=== PATIENT | female | born 1985 ===

== ENCOUNTER 2016-09-04 20:39 | Emergency (ER) | payer OTHER ==
[2016-09-04 20:45] VITALS: BMI 23.3
[2016-09-04] MEDS ORDERED: Promethazine/Cod 6.25mg-10mg/5ml Syr UD PO STA (20:49)
--- NOTE | 2016-09-04 21:08 | ED PDOC ---
Arrival/HPI - General Chief Complaint: Shortness Of Breath Time Seen by Provider: 09/04/16 20:41 Historian: Patient - History of Present Illness Narrative History of Present Illness (Text): 09/04/16 20:46 Ruthy Parnell is a 31 year old female, whose past medical history includes asthma, who presents to the emergency department complaining of shortness of breath for the past 4 months. Patient states she has also been experiencing an associated cough for 4 months that has not resolved. Patient denies any fever, chills, nausea, vomiting, diarrhea, urinary symptoms, back pain, neck pain, headache, dizziness, or any other complaints. Time/Duration: Other (4 months) Symptom Onset: Gradual Symptom Course: Unchanged Activities at Onset: Rest, Light Context: Home Past Medical History - Provider Review Nursing Documentation Reviewed: Yes - Infectious Disease Hx of Infectious Diseases: None - Tetanus Immunization Tetanus Immunization: Unknown - Pulmonary Hx Asthma: Yes Hx Pulmonary Edema: Yes (h/o intubation) - Neurological Hx Neurological Disorder: No - HEENT Hx HEENT Disorder: No - Renal Hx Renal Disorder: No - Endocrine/Metabolic Hx Endocrine Disorders: No - Hematological/Oncological Hx Blood Disorders: No - Integumentary Hx Dermatological Disorder: No - Musculoskeletal/Rheumatological Hx Musculoskeletal Disorders: No - Gastrointestinal Hx Gastrointestinal Disorders: No - Genitourinary/Gynecological Hx Genitourinary Disorders: No - Psychiatric Hx Psychophysiologic Disorder: No Hx Substance Use: No - Surgical History Hx Appendectomy: Yes - Anesthesia Hx Anesthesia: Yes Hx Anesthesia Reactions: No Hx Malignant Hyperthermia: No - Suicidal Assessment Feels Threatened In Home Enviroment: No Family/Social History - Physician Review Nursing Documentation Reviewed: Yes Family/Social History: No Known Family HX Smoking Status: Never Smoked Hx Alcohol Use: No Hx Substance Use: No Allergies/Home Meds Allergies/Adverse Reactions: Allergies mushroom Allergy (Verified 05/22/16 18:57) VOMITING Review of Systems - Physician Review All systems were reviewed & negative as marked: Yes - Review of Systems Constitutional: Normal Eyes: Normal ENT: Normal Respiratory: SOB, Cough Cardiovascular: Normal. absent: Chest Pain Gastrointestinal: Normal. absent: Abdominal Pain, Diarrhea, Nausea, Vomiting Genitourinary Female: Normal. absent: Dysuria, Frequency, Hematuria, Urine Output Changes Musculoskeletal: Normal. absent: Back Pain, Neck Pain Skin: Normal. absent: Rash Neurological: Normal. absent: Headache, Dizziness Endocrine: Normal Hemo/Lymphatic: Normal Psychiatric: Normal Physical Exam Vital Signs Reviewed: Yes Vital Signs Pulse Resp BP Pulse Ox 09/04/16 21:30 21 96 09/04/16 20:39 77 22 107/76 100 Temperature: Afebrile Blood Pressure: Normal Pulse: Regular Respiratory Rate: Normal Appearance: Positive for: Well-Appearing, Non-Toxic, Comfortable Pain Distress: None Mental Status: Positive for: Alert and Oriented X 3 - Systems Exam Head: Present: Atraumatic, Normocephalic Pupils: Present: PERRL Extroacular Muscles: Present: EOMI Conjunctiva: Present: Normal Mouth: Present: Moist Mucous Membranes Neck: Present: Normal Range of Motion Respiratory/Chest: Present: Wheezes. No: Respiratory Distress, Accessory Muscle Use Cardiovascular: Present: Regular Rate and Rhythm, Normal S1, S2. No: Murmurs Abdomen: Present: Normal Bowel Sounds. No: Tenderness, Distention, Peritoneal Signs Back: Present: Normal Inspection Upper Extremity: Present: Normal Inspection. No: Cyanosis, Edema Lower Extremity: Present: Normal Inspection. No: Edema Neurological: Present: GCS=15, CN II-XII Intact, Speech Normal Skin: Present: Warm, Dry, Normal Color. No: Rashes Psychiatric: Present: Alert, Oriented x 3, Normal Insight, Normal Concentration Medical Decision Making ED Course and Treatment: 09/04/16 20:48 Impression: 31 year old female complaining of shortness of breath and cough for 4 months. Differential Diagnosis include but are not limited to: asthma vs. bronchitis Plan: -- Duoneb -- Phenergan -- Solu-medrol -- Reassess and disposition Prior Visits: Notes and results from previous visits were reviewed. On 06/02/2016, pt was seen in the ED for lower abdominal pain. Pt was d/c home. Progress Notes: 09/04/16 22:40 On re-evaluation, the patient feels better and is in no acute distress. I have discussed the results and plan with the patient, who expresses understanding. Patient in agreement with plan to discharged home. Patient is stable for discharge. Patient was instructed to follow up with physician/clinic in 1-2 days or return if symptoms worsen or new concerning symptoms arise. Re-evaluation Time: 22:44 Reassessment Condition: Re-examined, Improved - Medication Orders Current Medication Orders: Albuterol/Ipratropium (Duoneb 3 Mg/0.5 Mg (3 Ml) Ud) 3 ml IH Q15M SESAR Last Admin: 09/04/16 22:41 Dose: 3 ML Discontinued Medications Methylprednisolone (Solu-Medrol) 125 mg IVP ONCE ONE Stop: 09/04/16 20:50 Last Admin: 09/04/16 22:17 Dose: 125 MG IVP Administration Document 09/04/16 22:17 MR (Rec: 09/04/16 22:17 MR [facility] [id number]) Charges for Administration # of IVP Administrations 1 Promethazine HCl/Codeine (Phenergan/Codeine Oral Syrup) 5 ml PO ONCE STA Stop: 09/04/16 20:50 Last Admin: 09/04/16 22:17 Dose: 5 ML - Scribe Statement The provider has reviewed the documentation as recorded by the Jey Ojeda Provider Attestation: All medical record entries made by the Terranceibleslye were at my direction and personally dictated by me. I have reviewed the chart and agree that the record accurately reflects my personal performance of the history, physical exam, medical decision making, and the department course for this patient. I have also personally directed, reviewed, and agree with the discharge instructions and disposition. Disposition/Present on Arrival - Present on Arrival Any Indicators Present on Arrival: No History of DVT/PE: No History of Uncontrolled Diabetes: No Urinary Catheter: No History of Decub. Ulcer: No History Surgical Site Infection Following: None - Disposition Have Diagnosis and Disposition been Completed?: Yes Diagnosis: Asthma Disposition: HOME/ ROUTINE Disposition Time: 22:44 Patient Problems: Current Active Problems Problem Status Diagnosed Asthma Acute Discharge Instructions (ExitCare): Asthma (ED) Prescriptions: Budesonide [Pulmicort Flexhaler] 90 mcg IH DAILY #1 aer.pow[employer][email or web address] predniSONE [predniSONE Tab] 20 mg PO TID #15 tab Referrals: Eduard Ferreira MD [Primary Care Provider] - Follow up with primary
[2016-09-04] MEDS: Albuterol-Ipratrop 3 mg / 0.5 (3 ml) UD IH SCH ×3 (22:17→23:06)
[2016-09-04 22:52] VITALS: TEMP 98.2
[2016-09-04 23:06] VITALS: BP 120/88; PULSE 90; RESP 18; O2SAT 100
== END 2016-09-04 23:30 | disposition home or self-care (01) ==
LOC: ED 20:39
DX: J45.909 Unspecified asthma, uncomplicated (principal)
CPT/HCPCS: 96374; 99284; J2930

== ENCOUNTER 2017-01-22 22:18 | Emergency (ER) | payer OTHER ==
[2017-01-22 22:31] VITALS: O2SAT 100
[2017-01-22 22:39] VITALS: BMI 21.9
--- NOTE | 2017-01-22 23:28 | ED PDOC ---
Arrival/HPI - General Chief Complaint: Syncope Time Seen by Provider: 01/22/17 23:13 Historian: Patient - History of Present Illness Narrative History of Present Illness (Text): 01/22/17 23:27 Ruthy Parnell is a 31 year old female, whose past medical history includes asthma and polycystic ovaries, who presents to the emergency department complaining of a syncopal episode earlier today. Patient states she was sitting on the toilet at 14:00 today, got up to shower, and had a syncopal episode. Patient states she is unable to recall the incident and notes she remembers waking up with posterior neck pain and headache. Patient states currently she is still experiencing posterior headache and neck pain with right hip discomfort when ambulating. Patient notes she is currently menstruating. Patient denies any fever, chills, chest pain, shortness of breath, nausea, vomiting, diarrhea, urinary symptoms, bowel/urinary incontinence, vision changes , focal neurological deficits, back pain, dizziness, or any other complaints. Time/Duration: Other (14:00 today) Symptom Onset: Sudden Symptom Course: Unchanged Activities at Onset: Rest, Light Context: Home Past Medical History - Provider Review Nursing Documentation Reviewed: Yes - Infectious Disease Hx of Infectious Diseases: None - Tetanus Immunization Tetanus Immunization: Unknown - Pulmonary Hx Asthma: Yes Hx Pulmonary Edema: Yes (h/o intubation) - Neurological Hx Neurological Disorder: No - HEENT Hx HEENT Disorder: No - Renal Hx Renal Disorder: No - Endocrine/Metabolic Hx Endocrine Disorders: No - Hematological/Oncological Hx Blood Disorders: No - Integumentary Hx Dermatological Disorder: No - Musculoskeletal/Rheumatological Hx Musculoskeletal Disorders: No - Gastrointestinal Hx Gastrointestinal Disorders: No - Genitourinary/Gynecological Hx Genitourinary Disorders: No - Psychiatric Hx Psychophysiologic Disorder: No Hx Substance Use: No - Surgical History Hx Appendectomy: Yes - Anesthesia Hx Anesthesia: No - Suicidal Assessment Feels Threatened In Home Enviroment: No Family/Social History - Physician Review Nursing Documentation Reviewed: Yes Family/Social History: Unknown Family HX Smoking Status: Never Smoked Hx Alcohol Use: No Hx Substance Use: No Allergies/Home Meds Allergies/Adverse Reactions: Allergies mushroom Allergy (Verified 05/22/16 18:57) VOMITING Review of Systems - Physician Review All systems were reviewed & negative as marked: Yes - Review of Systems Constitutional: Normal. absent: Fevers Eyes: Normal Respiratory: Normal. absent: SOB, Cough Cardiovascular: Syncope. absent: Chest Pain Gastrointestinal: Normal. absent: Abdominal Pain, Diarrhea, Nausea, Vomiting Genitourinary Female: Normal. absent: Dysuria, Frequency, Hematuria, Urine Output Changes Musculoskeletal: Arthralgias (+right hip pain), Neck Pain Skin: Normal. absent: Rash Neurological: Headache. absent: Dizziness Endocrine: Normal Hemo/Lymphatic: Normal Psychiatric: Normal Physical Exam Vital Signs Reviewed: Yes Vital Signs Temp Pulse Resp BP Pulse Ox 01/23/17 01:30 97.9 F 72 16 122/70 100 01/22/17 22:31 98.1 F 78 14 126/76 100 Temperature: Afebrile Blood Pressure: Normal Pulse: Regular Respiratory Rate: Normal Appearance: Positive for: Well-Appearing, Non-Toxic, Comfortable Pain Distress: None Mental Status: Positive for: Alert and Oriented X 3 Finger Stick Blood Glucose: 60 - Systems Exam Head: Present: Atraumatic, Normocephalic Pupils: Present: PERRL Extroacular Muscles: Present: EOMI Conjunctiva: Present: Normal Ears: Present: Normal, NORMAL TM, Normal Canal. No: Erythema, TM Bulging, Fluid , TM Perf Mouth: Present: Moist Mucous Membranes Pharnyx: Present: Normal. No: ERYTHEMA, EXUDATE, TONSILS ENLARGED, Peritonsilar Swelling, Uvular Deviation, Muffled/Hoarse Voice, Strider, Soft Palate/Uvular Edema Nose (External): Present: Atraumatic Nose (Internal): Present: Normal Inspection Neck: Present: Normal Range of Motion Respiratory/Chest: Present: Clear to Auscultation, Good Air Exchange. No: Respiratory Distress, Accessory Muscle Use Cardiovascular: Present: Regular Rate and Rhythm, Normal S1, S2. No: Murmurs Abdomen: Present: Normal Bowel Sounds. No: Tenderness, Distention, Peritoneal Signs Back: Present: Normal Inspection Upper Extremity: Present: Normal Inspection. No: Cyanosis, Edema Lower Extremity: Present: Normal Inspection. No: Edema Neurological: Present: GCS=15, CN II-XII Intact, Speech Normal Skin: Present: Warm, Dry, Normal Color. No: Rashes Psychiatric: Present: Alert, Oriented x 3, Normal Insight, Normal Concentration Medical Decision Making ED Course and Treatment: 01/22/17 23:27 Impression: 31 year old female presents s/p syncopal episode at 14:00 today with headache, neck pain, and right hip discomfort. Plan: -- EKG -- Labs -- UA -- Reassess and disposition Prior Visits: Notes and results from previous visits were reviewed. On 09/04/2016, pt was seen in the Emergency department for shortness of breath and cough. Pt was d/c home. Progress Notes: Reviewed EKG, NSR at [address]-segment elevations or depressions, no T-wave inversions, normal intervals. 01/23/17 00:17 RN reports pt is refusing blood work. Ultram ordered. 01/23/17 00:[address]/X-ray studies. 01/23/17 01:36 Reviewed radiology, XR Hips show no fracture. CT Head shows: 1. No acute intracranial abnormality. 2. Additional CT findings described above. CT Cervical Spine shows: 1. No acute cervical spine fracture or subluxation. 2. Mild spondylosis is visualized at C4-5. 01/23/17 01:39 On reevaluation the patient feels better and is in no acute distress. Headache has resolved. I have discussed the results and plan with the patient, who expresses understanding. Patient given the opportunity to ask question, all questions were answered and there is agreement with the plan to discharge the patient home. Patient is stable for discharge. Patient was instructed to follow up with physician/clinic in 1-2 days or return if symptoms persist/ worsen or new concerning symptoms arise. - Lab Interpretations Lab Results: Lab Results 01/23/17 00:00: Urine Color Yellow, Urine Appearance Sl cloudy, Urine pH 6.0, Ur Specific [place] <= 1.005, Urine Protein Negative, Urine Glucose (UA) Negative, Urine Ketones Negative, Urine Blood Large H, Urine Nitrate Negative, Urine Bilirubin Negative, Urine Urobilinogen 0.2, Ur Leukocyte Esterase Negative , Urine RBC 1 - 3, Urine WBC 0 - 2, Ur Epithelial Cells 0 - 2, Urine HCG, Qual Negative - RAD Interpretation Narrative RAD Interpretations (Text): XR Hips show no fracture. CT Head shows: Brain: The white-helm differentiation is preserved demonstrating no acute territorial type infarct. No acute intracranial hemorrhage is seen. There are low-lying cerebellar tonsils. This extends out of the field of view of this study. No edema. Midline shift: There is no midline shift. Ventricles: No ventriculomegaly. Bones/joints: The calvarium demonstrates no evidence for a depressed fracture. Soft tissues: No acute abnormality. Sinuses: Unremarkable as visualized. No acute sinusitis. Mastoid air cells: No mastoid effusion. IMPRESSION: 1. No acute intracranial abnormality. 2. Additional CT findings described above. CT Cervical Spine shows: Vertebrae: No acute cervical spine fracture or subluxation. The cervical lordosis is The facet alignment is preserved bilaterally. The occipital condyles and C1-C2 articulations appear intact. Discs/spinal canal/neural foramina: Mild spondylosis is visualized at C4-5. Soft tissues: The prevertebral soft tissues appear within normal limits. Lung apices: No pneumothorax. IMPRESSION: 1. No acute cervical spine fracture or subluxation. 2. Mild spondylosis is visualized at C4-5. Radiology Orders: 01/23/17 00:27 HEAD W/O CONTRAST [CT] Stat 01/23/17 00:28 CERVICAL SPINE W/O CONTRAST [CT] Stat HIP MIN 2V W/ PELVIS RT [RAD] Stat Senior Sourcing Manager: ED Physician, Radiologist - EKG Interpretation Interpreted by ED Physician: Yes Type: 12 lead EKG - Medication Orders Current Medication Orders: Discontinued Medications Tramadol HCl (Ultram) 50 mg PO STAT STA Stop: 01/23/17 00:19 Last Admin: 01/23/17 00:26 Dose: 50 mg - Scribe Statement The provider has reviewed the documentation as recorded by the Jey Ojeda Provider Scribe Attestation: All medical record entries made by the Jey were at my direction and personally dictated by me. I have reviewed the chart and agree that the record accurately reflects my personal performance of the history, physical exam, medical decision making, and the department course for this patient. I have also personally directed, reviewed, and agree with the discharge instructions and disposition. Disposition/Present on Arrival - Present on Arrival Any Indicators Present on Arrival: No History of DVT/PE: No History of Uncontrolled Diabetes: No Urinary Catheter: No History of Decub. Ulcer: No History Surgical Site Infection Following: None - Disposition Have Diagnosis and Disposition been Completed?: Yes Diagnosis: Vaso-vagal reaction, Cervical strain Disposition: HOME/ ROUTINE Disposition Time: 01:40 Condition: GOOD Discharge Instructions (ExitCare): Cervical Strain (DC), Syncope (ED) Prescriptions: Naproxen [Naprosyn Tab] 375 mg PO BID #12 tab Referrals: Eduard Ferreira MD [Primary Care Provider] - Follow up with primary Forms: [employer] ([place]ian)
[2017-01-23 00:48] LABS: URINE BILIRUBIN NEGATIVE (NEGATIVE); URINE BLOOD LARGE (NEGATIVE); URINE GLUCOSE (UA) NEGATIVE (NEGATIVE); URINE LEUKOCYTE ESTERASE NEGATIVE Leu/uL (NEGATIVE); URINE NITRATE NEGATIVE (NEGATIVE); URINE PROTEIN NEGATIVE mg/dL (<30 mg/dL); URINE UROBILINOGEN 0.2 E.U./dL (<1 E.U./dL)
[2017-01-23 00:51] LABS: URINE COLOR YELLOW (YELLOW)
[2017-01-23 00:52] LABS: URINE APPEARANCE SL CLOUDY (CLEAR)
[2017-01-23 01:05] LABS: HCG,QUALITATIVE URINE NEGATIVE (NEGATIVE)
[2017-01-23 01:12] LABS: URINE EPITHELIAL CELLS 0 - 2 /hpf (0-5); URINE WBC 0 - 2 /hpf (0-6)
--- NOTE | 2017-01-23 01:28 | CT ---
EXAM: CT Head Without Intravenous Contrast EXAM DATE/TIME: 01/23/2017 12:27 AM CLINICAL HISTORY: The patient age is 31 years old and is female; Injury or trauma; Fall; Initial encounter; Concussion / head injury Facility exam id and description: Ct heads head w/o contrast TECHNIQUE: Axial computed tomography images of the head/brain without intravenous contrast. All CT scans at this facility use one or more dose reduction techniques, viz.: automated exposure control; ma/kV adjustment per patient size (including targeted exams where dose is matched to indication; i.e. head); or iterative reconstruction technique. COMPARISON: No relevant prior studies available. FINDINGS: Brain: The white-helm differentiation is preserved demonstrating no acute territorial type infarct. No acute intracranial hemorrhage is seen. There are low-lying cerebellar tonsils. This extends out of the field of view of this study. No edema. Midline shift: There is no midline shift. Ventricles: No ventriculomegaly. Bones/joints: The calvarium demonstrates no evidence for a depressed fracture. Soft tissues: No acute abnormality. Sinuses: Unremarkable as visualized. No acute sinusitis. Mastoid air cells: No mastoid effusion. IMPRESSION: 1. No acute intracranial abnormality. 2. Additional CT findings described above.
--- NOTE | 2017-01-23 01:33 | CT ---
EXAM: CT Cervical Spine Without Intravenous Contrast EXAM DATE/TIME: 01/23/2017 12:28 AM CLINICAL HISTORY: The patient age is 31 years old and is female; Pain; Neck pain Facility exam id and description: Ct csps cervical spine w/o contrast TECHNIQUE: Axial computed tomography images of the cervical spine without intravenous contrast. All CT scans at this facility use one or more dose reduction techniques, viz.: automated exposure control; ma/kV adjustment per patient size (including targeted exams where dose is matched to indication; i.e. head); or iterative reconstruction technique. Coronal and sagittal reformatted images were created and reviewed. COMPARISON: No relevant prior studies available. FINDINGS: Vertebrae: No acute cervical spine fracture or subluxation. The cervical lordosis is The facet alignment is preserved bilaterally. The occipital condyles and C1-C2 articulations appear intact. Discs/spinal canal/neural foramina: Mild spondylosis is visualized at C4-5. Soft tissues: The prevertebral soft tissues appear within normal limits. Lung apices: No pneumothorax. IMPRESSION: 1. No acute cervical spine fracture or subluxation. 2. Mild spondylosis is visualized at C4-5.
[2017-01-23 02:00] VITALS: BP 122/70; PULSE 72; RESP 16; TEMP 97.9
--- NOTE | 2017-01-23 07:25 | RAD ---
PROCEDURE: Right Hip Radiographs. HISTORY: fall COMPARISON: None. FINDINGS: BONES: Normal. No fracture. JOINTS: Normal. SOFT TISSUES: Normal. OTHER FINDINGS: None. IMPRESSION: Normal radiographs of right hip.
--- NOTE | 2017-01-23 11:49 | CARD ---
APPROVED REPORT EKG Measurement Heart [id number] <Conclusion> Normal sinus rhythm Normal ECG
== END 2017-01-23 01:45 | disposition home or self-care (01) ==
LOC: ED 22:18
DX: S16.1XXA Strain of muscle, fascia and tendon at neck level, initial encounter (principal); W18.39XA Other fall on same level, initial encounter; Y93.E8 Activity, other personal hygiene; Y92.002 Bathroom of unspecified non-institutional (private) residence as the place of occurrence of the external cause; R55 Syncope and collapse

== ENCOUNTER 2017-04-09 21:58 | Emergency (ER) | payer OTHER ==
[2017-04-09 21:58] VITALS: BMI 21.9
[2017-04-09 22:12] VITALS: O2SAT 100
[2017-04-09 22:31] VITALS: RESP 16
--- NOTE | 2017-04-09 22:55 | ED PDOC ---
Arrival/HPI - General Chief Complaint: Chest Pain Time Seen by Provider: 04/09/17 22:02 Historian: Patient - History of Present Illness Narrative History of Present Illness (Text): 04/09/17 22:48 Ruthy Parnell is a 32 year old female, whose past medical history includes asthma, who presents to the Emergency department complaining of chest pain tonight. Patient states she woke today experiencing sharp mid-sternal chest pain.Hurts when taking a deep breath.No Sob.Patient reports pain is worsened with exertion. Patient notes she had post-operative complications following an appendectomy in the [place], was intubated secondary to pulmonary edema, and had an NM. Patient denies any fever, chills, back pain, neck pain, nausea, vomiting, diarrhea, headache, dizziness, or any other complaints. Time/Duration: Other (today) Symptom Onset: Gradual Symptom Course: Unchanged Activities at Onset: Light Context: Home Past Medical History - Provider Review Nursing Documentation Reviewed: Yes - Infectious Disease Hx of Infectious Diseases: None - Tetanus Immunization Tetanus Immunization: Unknown - Reproductive Menopause: No - Cardiac Hx Cardiac Disorders: Yes Hx NM: Yes (@ 20 years old) - Pulmonary Hx Asthma: Yes Hx Pulmonary Edema: Yes (h/o intubation) - Neurological Hx Neurological Disorder: No - HEENT Hx HEENT Disorder: No - Renal Hx Renal Disorder: No - Endocrine/Metabolic Hx Endocrine Disorders: No - Hematological/Oncological Hx Blood Disorders: No - Integumentary Hx Dermatological Disorder: No - Musculoskeletal/Rheumatological Hx Musculoskeletal Disorders: No - Gastrointestinal Hx Gastrointestinal Disorders: No - Genitourinary/Gynecological Hx Genitourinary Disorders: No - Psychiatric Hx Psychophysiologic Disorder: No Hx Substance Use: No - Surgical History Hx Appendectomy: Yes - Anesthesia Hx Anesthesia: Yes - Suicidal Assessment Feels Threatened In Home Enviroment: No Family/Social History - Physician Review Nursing Documentation Reviewed: Yes Family/Social History: Unknown Family HX Smoking Status: Never Smoked Hx Alcohol Use: No Hx Substance Use: No Allergies/Home Meds Allergies/Adverse Reactions: Allergies mushroom Adverse Reaction (Verified 04/09/17 22:30) VOMITING Home Medications: Home Meds Medication Instructions Recorded Confirmed Spironolactone 100 mg PO DAILY 04/09/17 04/09/17 Topiramate [Topamax] 25 mg PO DAILY 04/09/17 04/09/17 Review of Systems - Physician Review All systems were reviewed & negative as marked: Yes - Review of Systems Constitutional: Normal. absent: Fevers Eyes: Normal ENT: Normal Respiratory: SOB. absent: Cough Cardiovascular: Chest Pain Gastrointestinal: Normal. absent: Abdominal Pain, Diarrhea, Nausea, Vomiting Genitourinary Female: Normal. absent: Dysuria, Frequency, Hematuria, Urine Output Changes Musculoskeletal: Normal. absent: Back Pain, Neck Pain Skin: Normal. absent: Rash Neurological: Normal. absent: Headache, Dizziness Endocrine: Normal Hemo/Lymphatic: Normal Psychiatric: Normal Physical Exam Vital Signs Reviewed: Yes Vital Signs Pulse Resp BP Pulse Ox 04/10/17 01:00 72 16 123/65 100 04/09/17 23:58 67 16 120/67 100 04/09/17 22:13 66 16 124/68 100 04/09/17 21:58 76 15 124/68 100 Temperature: Afebrile Blood Pressure: Normal Pulse: Regular Respiratory Rate: Normal Appearance: Positive for: Well-Appearing, Non-Toxic, Comfortable Pain Distress: None Mental Status: Positive for: Alert and Oriented X 3 - Systems Exam Head: Present: Atraumatic, Normocephalic Pupils: Present: PERRL Extroacular Muscles: Present: EOMI Conjunctiva: Present: Normal Mouth: Present: Moist Mucous Membranes Neck: Present: Normal Range of Motion Respiratory/Chest: Present: Clear to Auscultation, Good Air Exchange. No: Respiratory Distress, Accessory Muscle Use Cardiovascular: Present: Regular Rate and Rhythm, Normal S1, S2. No: Murmurs Abdomen: Present: Normal Bowel Sounds. No: Tenderness, Distention, Peritoneal Signs Back: Present: Normal Inspection Upper Extremity: Present: Normal Inspection. No: Cyanosis, Edema Lower Extremity: Present: Normal Inspection. No: Edema Neurological: Present: GCS=15, CN II-XII Intact, Speech Normal Skin: Present: Warm, Dry, Normal Color. No: Rashes Psychiatric: Present: Alert, Oriented x 3, Normal Insight, Normal Concentration Medical Decision Making ED Course and Treatment: 04/09/17 22:48 Impression: 32 year old female complaining of mid-sternal chest pain today. Plan: -- EKG -- CXR -- Labs, cardiac enzymes, BNP, D-dimer -- Reassess and disposition Prior Visits: Notes and results from previous visits were reviewed. On 01/22/2017, pt was seen in the Emergency department status post syncopal episode with headache, neck pain, and hip discomfort. Pt was d/c home. Progress Notes: Reviewed EKG, NSR at [address]-segment elevations or depressions, no T-wave inversions, normal intervals. 04/10/17 00:44 Reviewed radiology, CXR shows no acute processes. 04/10/17 01:43 Discussed results and plan with pt. Pt was offered admission to the hospital for further evaluation but pt refused. Pt states she wants to go home. Pt will sign out against medical advice. The patient is choosing to leave against medical advice. I have personally explained to the patient that choosing to do so may result in permanent bodily harm or . I have discussed at great length that without further evaluation and monitoring there may be unforeseen circumstances and/or deterioration causing permanent bodily harm or as a result of their choice. The patient is alert, oriented, and shows the mental capacity to make clear decisions regarding the patients health care at this time. The patient continues to wish to leave against medical advice. In light of the patients decision to leave against medical advice, patient was made aware of the importance to following up as instructed. The patient has been advised that they should return to the emergency room immediately if they change their mind at any time, or if their condition begins to change or worsen in any way. - Lab Interpretations Lab Results: 04/10/17 00:01 04/10/17 00:01 Lab Results 04/10/17 00:01: PT 11.6, INR 1.06, APTT 28.4, D-Dimer, Quantitative 214 04/10/17 00:01: WBC 8.1, RBC 4.66, Hgb 13.1, Hct 39.2, MCV 84.1, MCH 28.1, MCHC 33.4, RDW 13.0, Plt Count 195, MPV 9.8 04/10/17 00:01: Sodium 139, Potassium 3.7, Chloride 104, Carbon Dioxide 24, Anion Gap 15, BUN 11, Creatinine 0.7, Est GFR ( Amer) > 60, Est GFR (Non- Af Amer) > 60, Random Glucose 81, Calcium 9.7, Total Bilirubin 0.5, AST 35, ALT 43, Alkaline Phosphatase 83, Lactate Dehydrogenase 460, Total Creatine Kinase 139, Troponin I < 0.01, NT-Pro-B Natriuret Pep 38.7, Total Protein 7.7, Albumin 4.4, Globulin 3.4, Albumin/Globulin Ratio 1.3 I have reviewed the lab results: Yes - RAD Interpretation Radiology Orders: 04/09/17 22:54 CHEST PORTABLE [RAD] Stat Engineering Technical Analyst: ED Physician - EKG Interpretation Interpreted by ED Physician: Yes Type: 12 lead EKG - Scribe Statement The provider has reviewed the documentation as recorded by the Terranceibleslye Ojeda All medical record entries made by the Terranceibleslye were at my direction and personally dictated by me. I have reviewed the chart and agree that the record accurately reflects my personal performance of the history, physical exam, medical decision making, and the department course for this patient. I have also personally directed, reviewed, and agree with the discharge instructions and disposition. Disposition/Present on Arrival - Present on Arrival Any Indicators Present on Arrival: No History of DVT/PE: No History of Uncontrolled Diabetes: No Urinary Catheter: No History of Decub. Ulcer: No History Surgical Site Infection Following: None - Disposition Have Diagnosis and Disposition been Completed?: Yes Diagnosis: Chest pain Disposition: AGAINST MEDICAL ADVICE Disposition Time: 02:05 Condition: GOOD Discharge Instructions (ExitCare): Chest Pain (ED) Forms: [employer] ([place])
[2017-04-10 00:42] LABS: ALB/GLOB RATIO 1.3 (1.1-1.8); ALKALINE PHOSPHATASE 83 U/L (38-126); ALT/SGPT 43 U/L (7-56); AST/SGOT 35 U/L (14-36); BILIRUBIN,TOTAL 0.5 mg/dL (0.2-1.3); BLOOD UREA NITROGEN 11 mg/dL (7-21); CALCIUM 9.7 mg/dL (8.4-10.5); CARBON DIOXIDE 24 mmol/L (21-33); CHLORIDE 104 mmol/L (98-107); GFR AFRICAN-AMERICAN > 60; GLUCOSE,RANDOM 81 mg/dL (70-110); POTASSIUM 3.7 mmol/L (3.6-5.0); SODIUM 139 mmol/L (132-148); TOTAL PROTEIN 7.7 g/dL (5.8-8.3)
[2017-04-10 00:48] LABS: HEMATOCRIT 39.2 % (36.0-48.0); MEAN CELL VOLUME 84.1 fl (80.0-105.0); MEAN CORPUSCULAR HEMOGLOBIN 28.1 pg (25.0-35.0); MEAN CORPUSCULAR HGB CONC 33.4 g/dl (31.0-37.0); MEAN PLATELET VOLUME 9.8 fl (7.0-11.0); WHITE BLOOD COUNT 8.1 10^3/ul (4.5-11.0)
[2017-04-10 00:55] LABS: TROPONIN I < 0.01 ng/mL
[2017-04-10 00:58] LABS: INR 1.06 (0.93-1.08); PARTIAL THROMBOPLASTIN TIME 28.4 Seconds (25.1-36.5)
[2017-04-10 02:03] VITALS: BP 123/65; PULSE 72
--- NOTE | 2017-04-10 08:24 | RAD ---
HISTORY: pain COMPARISON: 05/25/2015 FINDINGS: LUNGS: No active pulmonary disease. PLEURA: No significant pleural effusion identified, no pneumothorax apparent. CARDIOVASCULAR: Normal. OSSEOUS STRUCTURES: No significant abnormalities. VISUALIZED UPPER ABDOMEN: Normal. OTHER FINDINGS: None. IMPRESSION: No active disease.
--- NOTE | 2017-04-10 20:35 | CARD ---
APPROVED REPORT EKG Measurement Heart [id number] <Conclusion> Normal sinus rhythm Normal ECG
== END 2017-04-10 02:03 | disposition left against medical advice (07) ==
LOC: ED 21:58
DX: R07.9 Chest pain, unspecified (principal)

== ENCOUNTER 2017-06-04 13:31 | Emergency (ER) | payer OTHER ==
[2017-06-04 13:31] VITALS: BMI 21.9
[2017-06-04 14:04] VITALS: TEMP 98.3
--- NOTE | 2017-06-04 14:32 | ED PDOC ---
Arrival/HPI - General Chief Complaint: Shortness Of Breath Time Seen by Provider: 06/04/17 14:11 Historian: Patient - History of Present Illness Narrative History of Present Illness (Text): 06/04/17 14:27 A 32 year old female, whose past medical history includes pulmonary edema, [place], appendectomy, and asthma, presents to the emergency department complaining of 3 day duration cough. She notes that her throat feels itchy. The patient denies fevers, chills, headache, dizziness, chest pain, shortness of breath, dyspnea on exertion, abdominal pain, nausea, vomiting, diarrhea, back pain, neck pain, urinary/bowel changes, or any other complaint. Time/Duration: Other (3 Days) Symptom Onset: Sudden Symptom Course: Unchanged Activities at Onset: Rest, Light Context: Home Past Medical History - Provider Review Nursing Documentation Reviewed: Yes - Infectious Disease Hx of Infectious Diseases: None - Tetanus Immunization Tetanus Immunization: Unknown - Cardiac Hx Cardiac Disorders: Yes Hx WI: Yes (@ 20 years old) - Pulmonary Hx Asthma: Yes Hx Pulmonary Edema: Yes (h/o intubation) - Neurological Hx Neurological Disorder: No - HEENT Hx HEENT Disorder: No - Renal Hx Renal Disorder: No - Endocrine/Metabolic Hx Endocrine Disorders: No - Hematological/Oncological Hx Blood Disorders: No - Integumentary Hx Dermatological Disorder: No - Musculoskeletal/Rheumatological Hx Musculoskeletal Disorders: No - Gastrointestinal Hx Gastrointestinal Disorders: No - Genitourinary/Gynecological Hx Genitourinary Disorders: No - Psychiatric Hx Psychophysiologic Disorder: No Hx Substance Use: No - Surgical History Hx Appendectomy: Yes - Anesthesia Hx Anesthesia: No - Suicidal Assessment Feels Threatened In Home Enviroment: No Family/Social History - Physician Review Nursing Documentation Reviewed: Yes Family/Social History: No Known Family HX Smoking Status: Never Smoked Hx Alcohol Use: No Hx Substance Use: No Allergies/Home Meds Allergies/Adverse Reactions: Allergies mushroom Adverse Reaction (Verified 04/09/17 22:30) VOMITING Home Medications: Home Meds Medication Instructions Recorded Confirmed Topiramate [Topamax] 25 mg PO DAILY 04/09/17 06/04/17 Review of Systems - Physician Review All systems were reviewed & negative as marked: Yes - Review of Systems Constitutional: absent: Fevers, Night Sweats ENT: Sore Throat (Itchiness in throat) Respiratory: Cough. absent: SOB Cardiovascular: absent: Chest Pain, LEDESMA Gastrointestinal: absent: Abdominal Pain, Stool Changes, Diarrhea, Nausea, Vomiting Genitourinary Female: absent: Urine Output Changes Musculoskeletal: absent: Back Pain, Neck Pain Neurological: absent: Headache, Dizziness Physical Exam Vital Signs Reviewed: Yes Vital Signs Temp Pulse Resp BP Pulse Ox 06/04/17 15:10 89 18 122/71 97 06/04/17 14:49 18 98 06/04/17 13:56 98.3 F 96 H 16 124/83 98 Temperature: Afebrile Blood Pressure: Normal Pulse: Tachycardic Respiratory Rate: Normal Appearance: Positive for: Well-Appearing, Non-Toxic, Comfortable Pain Distress: None Mental Status: Positive for: Alert and Oriented X 3 - Systems Exam Head: Present: Atraumatic, Normocephalic Pupils: Present: PERRL Extroacular Muscles: Present: EOMI Conjunctiva: Present: Normal Mouth: Present: Moist Mucous Membranes Nose (Internal): Present: Other (Mucous in Nares.) Neck: Present: Normal Range of Motion Respiratory/Chest: Present: Wheezes (Trace expiratory wheezing. ). No: Retracting Cardiovascular: Present: Regular Rate and Rhythm, Normal S1, S2. No: Murmurs Abdomen: Present: Normal Bowel Sounds. No: Tenderness, Distention, Peritoneal Signs Back: Present: Normal Inspection Upper Extremity: Present: Normal Inspection. No: Cyanosis, Edema Lower Extremity: Present: Normal Inspection. No: Edema Neurological: Present: GCS=15, CN II-XII Intact, Speech Normal Skin: Present: Warm, Dry, Normal Color. No: Rashes Psychiatric: Present: Alert, Oriented x 3, Normal Insight, Normal Concentration Medical Decision Making ED Course and Treatment: 06/04/17 14:35 Impression: A 32 year old female presents to the emergency department for 3 day duration cough. Differential Diagnosis included but are not limited to: URI rule out PNA and Asthma. Plan: -- Chest X-ray -- Duoneb and predniSONE -- Reassess and disposition Prior Visits: Notes and results from previous visits were reviewed. Patient was last seen in the emergency department on 04/09/17. The patient was seen in the emergency department for a complaint of chest pain. The patient left against medical advice. Progress Notes: 06/04/17 15:22 On re-evaluation, patient feels better and is in no acute distress. Lungs are clear. Chest xray negative. Influenza negative. I have discussed the results and plan with the patient, who expresses understanding. Patient in agreement with plan to be discharged home. Patient is stable for discharge. Patient was instructed to follow up with physician or return if symptoms worsen or new concerning symptoms arise. - Lab Interpretations Lab Results: Lab Results 06/04/17 14:45: Influenza Typ A,B (EIA) Negative for flu a/b - RAD Interpretation Radiology Orders: 06/04/17 14:34 CXR [CHEST TWO VIEWS (PA/LAT)] [RAD] Stat - Medication Orders Current Medication Orders: Discontinued Medications Albuterol/Ipratropium (Duoneb 3 Mg/0.5 Mg (3 Ml) Ud) 3 ml IH STAT STA Stop: 06/04/17 14:35 Last Admin: 06/04/17 15:12 Dose: 3 ml Prednisone (Prednisone Tab) 60 mg PO STAT STA Stop: 06/04/17 14:35 Last Admin: 06/04/17 15:12 Dose: 60 mg - Scribe Statement The provider has reviewed the documentation as recorded by the Jey Thurman Provider Scribe Attestation: All medical record entries made by the Scribe were at my direction and personally dictated by me. I have reviewed the chart and agree that the record accurately reflects my personal performance of the history, physical exam, medical decision making, and the department course for this patient. I have also personally directed, reviewed, and agree with the discharge instructions and disposition. Disposition/Present on Arrival - Present on Arrival Any Indicators Present on Arrival: No History of DVT/PE: No History of Uncontrolled Diabetes: No Urinary Catheter: No History of Decub. Ulcer: No History Surgical Site Infection Following: None - Disposition Have Diagnosis and Disposition been Completed?: Yes Diagnosis: URI (upper respiratory infection), Asthma Disposition: HOME/ ROUTINE Disposition Time: 16:52 Patient Plan: Discharge Condition: IMPROVED Discharge Instructions (ExitCare): Asthma (ED), Upper Respiratory Infection (ED ) Additional Instructions: Ms Bennett, thank you for letting us take care of you today. Your provider was Dr. Trevino. You were treated for Asthma and URI. The emergency medical care you received today was directed at your acute symptoms. If you were prescribed any medication, please fill it and take as directed. It may take several days for your symptoms to resolve. Return to the Emergency Department if your symptoms worsen, do not improve, or if you have any other problems. Please contact your doctor or call one of the physicians/clinics you have been referred to that are listed on the Patient Visit Information form that is included in your discharge packet. Bring any paperwork you were given at discharge with you along with any medications you are taking to your follow up visit. Our treatment cannot replace ongoing medical care by a primary care provider (PCP) outside of the emergency department. Thank you for allowing the [facility] team to be part of your care today. If you had an X-Ray or CT scan: A Radiologist will review the ED reading if any change in treatment is needed we will contact you. If you had a blood, urine, or wound culture: It will take several days for the results, if any change in treatment is needed we will contact you. If you had an STI test: It will take 48 hours for the results. Please call after 1 week if you have not heard back. Prescriptions: Albuterol HFA [Ventolin HFA 90 mcg/actuation (8 g)] 2 puff IH Q4 #1 puff guaiFENesin/Dextromethorphan [guaiFENesin-DM] 10 ml PO Q6 PRN #1 bottle PRN Reason: Cough predniSONE [predniSONE Tab] 40 mg PO DAILY #8 tab Referrals: [facility] Aleena Rebarrett, [Non-Staff] - Follow up with primary Forms: [employer] ([place])
[2017-06-04] MEDS ORDERED: Albuterol-Ipratrop 3 mg / 0.5 (3 ml) UD IH STA (14:34)
[2017-06-04 14:56] VITALS: RESP 18
[2017-06-04 15:10] VITALS: BP 122/71; PULSE 89; O2SAT 97
--- NOTE | 2017-06-04 15:38 | RAD ---
HISTORY: cough r/o pna COMPARISON: No prior. TECHNIQUE: Chest PA and lateral FINDINGS: LUNGS: No active pulmonary disease. PLEURA: No significant pleural effusion identified. No pneumothorax apparent. CARDIOVASCULAR: Normal. OSSEOUS STRUCTURES: No significant abnormalities. VISUALIZED UPPER ABDOMEN: Normal. OTHER FINDINGS: None. IMPRESSION: No active disease.
== END 2017-06-04 16:52 | disposition home or self-care (01) ==
LOC: ED 13:31
DX: J45.909 Unspecified asthma, uncomplicated (principal); J06.9 Acute upper respiratory infection, unspecified

== ENCOUNTER 2017-06-11 18:12 | Emergency (ER) | payer OTHER ==
[2017-06-11 18:16] VITALS: BMI 22.2
[2017-06-11 18:34] VITALS: TEMP 98.3
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
[2017-06-11] MEDS ORDERED: Oxycodone/Acetaminophen 5/325 mg Tab PO STA (21:35)
[2017-06-11 22:56] VITALS: BP 112/87; PULSE 82; RESP 16; O2SAT 100
--- NOTE | 2017-06-12 07:57 | RAD ---
PROCEDURE: Radiographs of the Lumbar Spine. HISTORY: back pain COMPARISON: No prior. FINDINGS: BONES: Normal alignment. No listhesis. No fracture. No destructive bony lesion appreciable. Non spondylolysis identified. DISC SPACES: Unremarkable. OTHER FINDINGS: None. IMPRESSION: Unremarkable radiographs of the lumbar spine. If symptoms persist or worsen follow-up MRI may be considered.
== END 2017-06-11 22:56 | disposition home or self-care (01) ==
LOC: ED 18:12
DX: S09.90XA Unspecified injury of head, initial encounter (principal); V49.49XA Driver injured in collision with other motor vehicles in traffic accident, initial encounter; Y92.410 Unspecified street and highway as the place of occurrence of the external cause; R51 Headache; M54.2 Cervicalgia; M54.5 Low back pain